=== PATIENT | female | born 1980 | race Caucasian/White ===

== ENCOUNTER 2024-04-05 17:03 | Emergency (ER) | payer MEDICAID, OTHER ==
[~2024-04-05] VITALS: Ht 152.4 cm; Wt 55.5 kg
[2024-04-05] MEDS ORDERED: SULF1TAB49 PO (18:00)
[2024-04-05] MEDS: cephalexin 250mg capsule PO ONE (18:01)
[2024-04-05] MEDS: sulfamethoxazole/trimethoprim DS (800/160mg) tablet PO ONE (18:01)
[2024-04-05 18:22] VITALS: BP 123/68; PULSE 68; RESP 15; TEMP 97.1; O2SAT 98
== END 2024-04-05 18:27 | disposition home or self-care (01) ==
LOC: ER 17:04
DX: L72.3 Sebaceous cyst (principal); Z88.8 Allergy status to other drugs, medicaments and biological substances; Z91.040 Latex allergy status; Z79.899 Other long term (current) drug therapy; Z72.89 Other problems related to lifestyle; Z56.0 Unemployment, unspecified
CPT/HCPCS: 87070; 87077; 87186; 99283

== ENCOUNTER 2024-06-17 00:38 | Emergency (ER) | payer MEDICAID ==
[~2024-06-17] VITALS: Ht 152.4 cm; Wt 56.8 kg
[2024-06-17] MEDS: ipratropium/albuterol 3ml nebule NEB ONE (01:18)
[2024-06-17 01:22] VITALS: PULSE 110; RESP 20; O2SAT 94
[2024-06-17 01:28] VITALS: PULSE 108; RESP 18; O2SAT 100
[2024-06-17 01:48] LABS: BASOPHILS # (AUTO) 0.1 X10'3 (0-0.2); BASOPHILS % (AUTO) 1.4 % (0-1); EOSINOPHILS # (AUTO) 0.6 X10'3 (0-0.9); EOSINOPHILS % (AUTO) 7.6 % (0-6); HEMOGLOBIN 15.9 g/dl (12.0-16.0); LYMPHOCYTES # (AUTO) 1.9 X10'3 (1.1-4.8); LYMPHOCYTES % (AUTO) 24.6 % (21-51); MEAN CORPUSCULAR HEMOGLOBIN 29.7 PG (27.0-31.0); MEAN CORPUSCULAR HGB CONC 33.8 g/dL (33.0-36.5); MEAN CORPUSCULAR VOLUME 87.8 FL (78-98); MEAN PLATELET VOLUME 7.8 FL (7.4-10.4); MONOCYTES # (AUTO) 0.7 X10'3 (0-0.9); MONOCYTES % (AUTO) 8.5 % (2-12); NEUTROPHILS # (AUTO) 4.6 X10'3 (1.8-7.7); NEUTROPHILS % (AUTO) 57.9 % (42-75); PLATELET COUNT 315 X10'3 (140-440); RED BLOOD COUNT 5.36 X10'6 (4.20-5.60); RED CELL DISTRIBUTION WIDTH 14.4 % (11.5-14.5); WHITE BLOOD COUNT 7.9 X10'3 (4.5-11.0)
[2024-06-17 02:10] LABS: ALBUMIN 3.9 G/DL (3.4-5.0); ANION GAP 9 (8-16); BLOOD UREA NITROGEN 15 MG/DL (7-18); BUN/CREATININE RATIO 14.7 (10.0-20.0); CALCIUM 9.3 MG/DL (8.5-10.1); CHLORIDE 101 MMOL/L (99-107); CREATININE 1.02 MG/DL (0.40-0.90); GLUCOSE 107 MG/DL (70-104); POTASSIUM 4.4 MMOL/L (3.5-5.1); PRO BRAIN NATRIURETIC PEPTIDE < 30 PG/ML (0-125); SODIUM 139 MMOL/L (135-145); TOTAL CARBON DIOXIDE 29.3 MMOL/L (24-32); eCRCL 52 ML/MIN; eGFR 59 ML/MIN
[2024-06-17] MEDS: levoFLOXACIN-Levaquin 750MG/D5 150 ML IV ONE (02:10)
[2024-06-17] MEDS: methylPREDNISolone sod succ 125mg/2ml vial IV ONE (02:10)
[2024-06-17] MEDS: albuterol 2.5 MG/3 ML nebule NEB ONE (02:15)
[2024-06-17 02:20] VITALS: PULSE 103; RESP 18; O2SAT 95
[2024-06-17 02:33] VITALS: PULSE 124; RESP 20; O2SAT 96
[2024-06-17 02:35] VITALS: BP 124/89; PULSE 123; RESP 20; TEMP 98.6; O2SAT 95
[2024-06-17] MEDS: LORazepam 2 mg/ml vial IV ONE (02:59)
[2024-06-17] MEDS ORDERED: budesonide 0.5mg/2ml UD nebule IH ONE (03:10)
== END 2024-06-17 04:00 | disposition left against medical advice (07) ==
LOC: ER 00:39
DX: J44.1 Chronic obstructive pulmonary disease with (acute) exacerbation (principal); F17.210 Nicotine dependence, cigarettes, uncomplicated; I51.7 Cardiomegaly; Z88.6 Allergy status to analgesic agent; Z88.8 Allergy status to other drugs, medicaments and biological substances; Z91.040 Latex allergy status
CPT/HCPCS: 36415; 71045; 80048; 83605; 83880; 84145; 85025; 87040; 93005; 94640; 96365; 96375; 99285; J1956; J2060; J2919; 94760

== ENCOUNTER 2025-01-03 16:48 | Emergency (ER) | payer MEDICAID ==
[~2025-01-03] VITALS: Ht 152.4 cm; Wt 56.8 kg
[2025-01-03 16:49] VITALS: BP 140/87; TEMP 99.6
[2025-01-03 18:47] VITALS: PULSE 99; RESP 15; O2SAT 97
--- NOTE | 2025-01-03 19:16 | Physician Documentation ---
History of Present Illness Chief Complaint: Abdominal Pain w/vomiting Stated Complaint: HEADACHES Primary Medical Doctor: NONE HPI n/v/d 2 days Day of Onset: Jan 03, 2025 Medication Reconciliation Allergies: Coded Allergies: aspirin (Verified Allergy, Unknown, 01/03/25) diphenhydramine (Verified Allergy, Unknown, 01/03/25) latex (Verified Allergy, Unknown, 01/03/25) Past Medical History Past Medical History: No Pertinent History Past Surgical History: no surgical history Alcohol Use: Occasionally Drug Use: none Lives with: Spouse, Family Lives In: Home Occupation: unemployed Physical Exam Vital Signs: Temperature: 99.6, Source: Temporal, Heart Rate: 99, Respiratory Rate: 15, BP: 140/87, Pulse Oximetry: 97, Weight: 56.820 Physical Exam General: Alert, no apparent distress. Chest: No accessory muscle use. Cardiovascular: Regular rate and rhythm, no murmurs. Gastrointestinal: Soft, nontender, nondistended. Bowels sounds present. Neurologic: Oriented x4. Psychiatric: Normal mood and affect. Skin: Normal color, warm and dry. No edema, no ecchymosis. Progress Results/Orders Results/Orders Vital Signs 01/03/25 01/03/25 16:49 18:47 Temp 99.6 Pulse 113 99 Resp 15 15 B/P (MAP) 140/87 Pulse Ox 100 97 Medical Decision Making Findings eloped Differential Dx:Considerations: Include: AAA, -Complete, - Incomplete, -Inevitable, -Missed, -Threatened, Abruptio placentae, Angina/VA, Aortic dissection, Appendicitis, Bowel obstruction, Cholangitis, Cholelithasis, Constipation, Diverticular disease, Esophageal rupture, Esophagitis, Gastritis/PUD, Gastroenteritis, GI hemorrhage, Hernia, Hepatitis, Inflammatory BD, Ischemic bowel, Ovarian cyst/torsion, Pancreatitis, PID, Porphyria, Trauma, intraabdominal, Urinary obstruction, Urinary tract infection, Urolithiasis, Other Departure Disposition: 07 LEFT AWOL/ELOPED Impression: Primary Impression: Vomiting Referrals: NO PRIMARY CARE PROVIDER (PCP) Signature Scribe Signature: b Attestation: Scribed for Emergency,Department by Miller Saez NP . 01/03/25 23:49 MILLER BANERJEE NP Jan 03, 2025 19:16
== END 2025-01-04 06:26 | disposition left against medical advice (07) ==
LOC: ER 16:48
DX: R11.2 Nausea with vomiting, unspecified (principal)
CPT/HCPCS: 99281; 99282